=== PATIENT | male | born 1990 | race African-American/Black ===

== ENCOUNTER 2018-08-11 12:51 | Emergency (ER) | payer OTHER ==
[~2018-08-11] VITALS: Ht 177.8 cm; Wt 65.8 kg
--- NOTE | 2018-08-11 13:01 | NUR ---
Dr Connolly at the bedside for MSE.
[2018-08-11] MEDS ORDERED: KETOROLAC TROMETHAMINE 15 MG INJ ONE (13:13)
[2018-08-11] MEDS ORDERED: LIDOCAINE VISCUS 2% 15 ML UDC ONE (13:13)
[2018-08-11] MEDS ORDERED: MAG HYDROX/AL HYDROX/SIMETH 30 ML LIQUID UDC ONE (13:13)
[2018-08-11] MEDS ORDERED: FAMOTIDINE. 20 MG/2 ML VIAL IV ONE ×2 (13:14→13:15)
[2018-08-11] MEDS ORDERED: KETOROLAC TROMETHAMINE 15 MG INJ IV ONE (13:15)
[2018-08-11] MEDS ORDERED: LIDOCAINE VISCUS 2% 15 ML UDC MM ONE (13:15)
[2018-08-11] MEDS ORDERED: MAG HYDROX/AL HYDROX/SIMETH 30 ML LIQUID UDC PO ONE (13:15)
[2018-08-11 13:26] LABS: BASOPHILS % (AUTO) 0.4 % (0.0-2.0); EOSINOPHILS # (AUTO) 0.1 K/uL (0.0-0.7); EOSINOPHILS % (AUTO) 1.6 % (0.0-7.0); HEMOGLOBIN 14.4 g/dL (12.5-16.3); LYMPHOCYTES % (AUTO) 29.3 % (20.5-51.5); MEAN CORPUSCULAR HEMOGLOBIN 29.6 uug (23.8-33.4); MEAN CORPUSCULAR HGB CONC 34 g/dL (32.5-36.3); MEAN CORPUSCULAR VOLUME 88.2 fL (73.0-96.2); MONOCYTES # (AUTO) 0.5 K/uL (2.0-10.0); MONOCYTES % (AUTO) 7.5 % (0.0-11.0); NEUTROPHILS # (AUTO) 4.2 K/uL (1.8-8.9); NEUTROPHILS % (AUTO) 61.2 % (38.5-71.5); PLATELET COUNT (AUTO) 151 K/uL (152-348); RED BLOOD CELL COUNT(AUTO) 4.88 MIL/uL (4.06-5.63); WHITE BLOOD COUNT (AUTO) 6.9 K/uL (3.6-10.2)
[2018-08-11 13:32] LABS: CREATININE 1.1 mg/dL (0.6-1.3); POTASSIUM 3.2 mmol/L (3.5-5.1)
[2018-08-11 13:38] LABS: BILIRUBIN,DIRECT 0.1 mg/dL (0.0-0.2); BILIRUBIN,TOTAL 0.3 mg/dL (0.2-1.0); TOTAL PROTEIN, SERUM 8.4 g/dL (6.4-8.2)
--- NOTE | 2018-08-11 13:39 | NUR ---
Pt states feeling better.
[2018-08-11 13:51] VITALS: BP 112/63
--- NOTE | 2018-08-11 13:52 | NUR ---
IV removed. Catheter intact and site benign. Pressure and 4x4 gauze applied to site. No bleeding noted.
--- NOTE | 2018-08-11 13:54 | NUR ---
Patient discharged to home in stable conditon. Written and verbal after care instructions given. Patient verbalizes understanding of instructions.
== END 2018-08-11 13:54 | disposition home or self-care (01) ==
LOC: ER 12:51
DX: R10.13 Epigastric pain (principal); R10.10 Upper abdominal pain, unspecified
CPT/HCPCS: 36415; 80048; 80076; 83690; 85025; 96374; 96375; 99283; J1885; J3490; A4663

== ENCOUNTER 2019-05-19 10:45 | Emergency (ER) | payer OTHER ==
[~2019-05-19] VITALS: Ht 188 cm; Wt 75.3 kg
--- NOTE | 2019-05-19 11:29 | NUR ---
Patient discharged to home in stable conditon. Written and verbal after care instructions given. Patient verbalizes understanding of instructions.
== END 2019-05-19 11:31 | disposition home or self-care (01) ==
LOC: ER 10:45
DX: S93.402A Sprain of unspecified ligament of left ankle, initial encounter (principal); K21.9 Gastro-esophageal reflux disease without esophagitis; X50.1XXA Overexertion from prolonged static or awkward postures, initial encounter; Y93.41 Activity, dancing; Y92.89 Other specified places as the place of occurrence of the external cause; Y99.8 Other external cause status
CPT/HCPCS: A4663

== ENCOUNTER 2021-02-02 15:35 | Emergency (ER) | payer OTHER ==
[~2021-02-02] VITALS: Ht 177.8 cm; Wt 68.0 kg
--- NOTE | 2021-02-02 15:50 | NUR ---
Pt was seen by and given verbal ACI but walked out of ER before written ACI could be given.
== END 2021-02-02 15:52 | disposition home or self-care (01) ==
LOC: ER 15:35
DX: Z76.89 Persons encountering health services in other specified circumstances (principal); K21.9 Gastro-esophageal reflux disease without esophagitis
CPT/HCPCS: A4663

== ENCOUNTER 2021-06-30 12:40 | Emergency (ER) | payer OTHER ==
[~2021-06-30] VITALS: Ht 177.8 cm; Wt 68.0 kg
--- NOTE | 2021-06-30 13:04 | NUR ---
Eye exam setup for provider. Provider at bedside.
[2021-06-30] MEDS ORDERED: TETRACAINE HCL 0.5% OPHT DROP 2 ML BOTTLE ONE (13:11)
[2021-06-30] MEDS ORDERED: SULF15DR6 LEFTEYE (13:11)
[2021-06-30] MEDS ORDERED: FLUORESCEIN SODIUM 1 MG STRIP ONE (13:11)
[2021-06-30] MEDS ORDERED: FLUORESCEIN SODIUM 1 MG STRIP OP ONE (13:15)
[2021-06-30] MEDS ORDERED: TETRACAINE HCL 0.5% OPHT DROP 2 ML BOTTLE OP ONE (13:15)
[2021-06-30 13:16] VITALS: BP 117/87
--- NOTE | 2021-06-30 13:16 | NUR ---
Patient discharged to home in stable condition. Written and verbal after care instructions given. Patient verbalizes understanding of instructions. Stressed follow up or return to ER for worsening s/s.
== END 2021-06-30 13:17 | disposition home or self-care (01) ==
LOC: ER 12:43
DX: S05.02XA Injury of conjunctiva and corneal abrasion without foreign body, left eye, initial encounter (principal); X58.XXXA Exposure to other specified factors, initial encounter; Y92.89 Other specified places as the place of occurrence of the external cause
CPT/HCPCS: A4663

== ENCOUNTER 2021-11-14 12:44 | Emergency (ER) | payer MEDICAID, OTHER ==
[~2021-11-14] VITALS: Ht 177.8 cm; Wt 68.0 kg
[~2021-11-14 12:44] MED LIST: SULF15DR6 LEFTEYE
[2021-11-14] MEDS ORDERED: HYDR28.316 TP ×2 (13:03→14:56)
== END 2021-11-14 13:11 | disposition home or self-care (01) ==
LOC: ER 12:44
DX: K64.4 Residual hemorrhoidal skin tags (principal)
CPT/HCPCS: A4663

== ENCOUNTER 2022-02-06 11:04 | Emergency (ER) | payer MEDICAID ==
[~2022-02-06] VITALS: Ht 177.8 cm; Wt 68.0 kg
[~2022-02-06 11:04] MED LIST changes: +HYDR28.316 TP
--- NOTE | 2022-02-06 11:15 | NUR ---
MSE in progress.
[2022-02-06] MEDS ORDERED: FLUORESCEIN SODIUM 1 MG STRIP ONE (11:20)
[2022-02-06] MEDS ORDERED: POLY10DR6 EACHEYE (11:25)
[2022-02-06] MEDS ORDERED: FLUORESCEIN SODIUM 1 MG STRIP OP ONE (11:30)
[2022-02-06 11:40] VITALS: BP 124/83
== END 2022-02-06 11:40 | disposition home or self-care (01) ==
LOC: ER 11:04
DX: S05.02XA Injury of conjunctiva and corneal abrasion without foreign body, left eye, initial encounter (principal); X58.XXXA Exposure to other specified factors, initial encounter; Y92.89 Other specified places as the place of occurrence of the external cause; H57.12 Ocular pain, left eye
CPT/HCPCS: A4663

== ENCOUNTER 2022-03-04 13:11 | Emergency (ER) | payer MEDICAID ==
[~2022-03-04] VITALS: Ht 177.8 cm; Wt 68.0 kg
[~2022-03-04 13:11] MED LIST changes: +POLY10DR6 EACHEYE
== END 2022-03-04 14:30 | disposition left against medical advice (07) ==
LOC: ER 13:11
DX: Z53.21 Procedure and treatment not carried out due to patient leaving prior to being seen by health care provider (principal)

== ENCOUNTER 2023-04-13 17:38 | Emergency (ER) | payer MEDICAID ==
[~2023-04-13] VITALS: Ht 177.8 cm; Wt 68.0 kg
[2023-04-13 19:35] VITALS: BP 112/79; TEMP 98.9; O2SAT 100
== END 2023-04-13 19:35 | disposition home or self-care (01) ==
LOC: ER 17:45
DX: S06.0X0A Concussion without loss of consciousness, initial encounter (principal); K21.9 Gastro-esophageal reflux disease without esophagitis; Z79.899 Other long term (current) drug therapy; W18.39XA Other fall on same level, initial encounter; Y93.89 Activity, other specified; Y92.89 Other specified places as the place of occurrence of the external cause; Y99.8 Other external cause status
CPT/HCPCS: A4663

== ENCOUNTER 2023-06-18 09:45 | Emergency (ER) | payer MEDICAID ==
[~2023-06-18] VITALS: Ht 177.8 cm; Wt 68.0 kg
[2023-06-18] MEDS ORDERED: DOXY100C5 PO (10:02)
[2023-06-18] MEDS ORDERED: DOXY100T2 PO (10:07)
[2023-06-18 11:25] VITALS: BP 113/67; O2SAT 96
== END 2023-06-18 11:25 | disposition home or self-care (01) ==
LOC: ER 09:45
DX: J02.9 Acute pharyngitis, unspecified (principal); K21.9 Gastro-esophageal reflux disease without esophagitis; Z79.899 Other long term (current) drug therapy
CPT/HCPCS: A4606; A4663

== ENCOUNTER 2023-07-11 09:57 | Emergency (ER) | payer MEDICAID ==
[~2023-07-11] VITALS: Ht 177.8 cm; Wt 68.0 kg
[~2023-07-11 09:57] MED LIST changes: +DOXY100T2 PO
[2023-07-11 10:14] VITALS: O2SAT 97
[2023-07-11] MEDS ORDERED: METOCLOPRAMIDE HCL 10 MG/2 ML VIAL IV ONE (11:15)
[2023-07-11] MEDS ORDERED: KETOROLAC TROMETHAMINE 15 MG INJ IVP ONE (11:15)
[2023-07-11] MEDS ORDERED: IV NORMAL SALINE 1000 ML BAG IV ONE (11:15)
[2023-07-11 11:44] LABS: BASOPHILS # (AUTO) 0.1 K/UL (0.0-0.2); BASOPHILS % (AUTO) 1.8 % (0.0-2.0); EOSINOPHILS # (AUTO) 0.1 K/uL (0.0-0.7); EOSINOPHILS % (AUTO) 2.8 % (0.0-7.0); HEMATOCRIT 44.8 % (36.7-47.1); HEMOGLOBIN 14.8 g/dL (12.5-16.3); LYMPHOCYTES # (AUTO) 1.3 K/uL (0.8-4.8); LYMPHOCYTES % (AUTO) 40.8 % (20.5-51.5); MEAN CORPUSCULAR HEMOGLOBIN 29.6 uug (23.8-33.4); MEAN CORPUSCULAR HGB CONC 33 g/dL (32.5-36.3); MEAN CORPUSCULAR VOLUME 89.4 fL (73.0-96.2); MONOCYTES # (AUTO) 0.4 K/uL (0.1-1.30); MONOCYTES % (AUTO) 11.9 % (0.0-11.0); NEUTROPHILS # (AUTO) 1.3 K/uL (1.8-8.9); NEUTROPHILS % (AUTO) 42.7 % (38.5-71.5); PLATELET COUNT (AUTO) 153 K/uL (152-348); RED BLOOD CELL COUNT(AUTO) 5.01 MIL/uL (4.06-5.63); RED CELL DISTRIBUTION WIDTH 13.8 % (12.1-16.2); WHITE BLOOD COUNT (AUTO) 3.1 K/uL (3.6-10.2)
[2023-07-11 12:06] LABS: ALBUMIN 4.1 g/dL (3.4-5.0); BILIRUBIN,DIRECT 0.2 mg/dL (0.0-0.2); BILIRUBIN,TOTAL 0.5 mg/dL (0.2-1.0); CALCIUM 9.5 mg/dL (8.5-10.1); POTASSIUM 4.1 mmol/L (3.5-5.1); TOTAL PROTEIN, SERUM 7.9 g/dL (6.4-8.2)
[2023-07-11] MEDS ORDERED: DICY10CA13 PO (12:28)
[2023-07-11] MEDS ORDERED: IBUP-1957 PO (12:28)
[2023-07-11 12:53] LABS: DIFFERENTIAL COMMENT 1
== END 2023-07-11 12:39 | disposition home or self-care (01) ==
LOC: ER 09:57
DX: R10.32 Left lower quadrant pain (principal); R19.7 Diarrhea, unspecified; K21.9 Gastro-esophageal reflux disease without esophagitis; Z79.1 Long term (current) use of non-steroidal anti-inflammatories (NSAID); Z79.2 Long term (current) use of antibiotics; Z79.899 Other long term (current) drug therapy
CPT/HCPCS: 36415; 83690; 85025; A4606; A4663

== ENCOUNTER 2023-09-03 18:29 | Emergency (ER) | payer MEDICAID, OTHER ==
[~2023-09-03] VITALS: Ht 177.8 cm; Wt 68.0 kg
[~2023-09-03 18:29] MED LIST changes: +DICY10CA13 PO; +IBUP-1957 PO
[2023-09-03] MEDS ORDERED: ONDANSETRON ODT 4 MG TAB.RAPDIS SL ONE (19:30)
[2023-09-03] MEDS ORDERED: DICYCLOMINE HCL LIQ 10 MG/5 ML UDC PO ONE (19:30)
[2023-09-03] MEDS ORDERED: DICYCLOMINE HCL LIQ 10 MG/5 ML UDC ONE (19:39)
[2023-09-03] MEDS ORDERED: ONDANSETRON ODT 4 MG TAB.RAPDIS ONE (19:39)
[2023-09-03] MEDS ORDERED: DICY20TA11 PO (20:09)
[2023-09-03] MEDS ORDERED: ONDA4TAB11 PO (20:09)
[2023-09-03 20:22] VITALS: BP 130/69; TEMP 98.6; O2SAT 100
== END 2023-09-03 20:22 | disposition home or self-care (01) ==
LOC: ER 18:30
DX: R19.7 Diarrhea, unspecified (principal); R10.31 Right lower quadrant pain; R11.2 Nausea with vomiting, unspecified; K21.9 Gastro-esophageal reflux disease without esophagitis; Z79.899 Other long term (current) drug therapy
CPT/HCPCS: A4606; A4663; Q0162

== ENCOUNTER 2023-12-29 17:14 | Emergency (ER) | payer MEDICAID, OTHER ==
[~2023-12-29] VITALS: Ht 177.8 cm; Wt 71.7 kg
[~2023-12-29 17:14] MED LIST changes: -DICY10CA13 PO; +DICY20TA11 PO; -DOXY100T2 PO; -HYDR28.316 TP; -IBUP-1957 PO; +ONDA4TAB11 PO; -POLY10DR6 EACHEYE; -SULF15DR6 LEFTEYE
[2023-12-29 17:55] VITALS: BP 130/74; TEMP 98.3; O2SAT 98
== END 2023-12-29 18:47 | disposition home or self-care (01) ==
LOC: ER 17:15
DX: I10 Essential (primary) hypertension (principal); K21.9 Gastro-esophageal reflux disease without esophagitis; Z79.899 Other long term (current) drug therapy
CPT/HCPCS: A4606; A4663

== ENCOUNTER 2024-06-25 11:32 | Emergency (ER) | payer MEDICAID, OTHER ==
[~2024-06-25] VITALS: Ht 175.3 cm; Wt 68.0 kg
[2024-06-25] MEDS ORDERED: IBUP-1955 PO (12:03)
[2024-06-25 12:15] VITALS: BP 120/65; O2SAT 98
== END 2024-06-25 12:22 | disposition home or self-care (01) ==
LOC: ER 11:32
DX: M25.561 Pain in right knee (principal); K21.9 Gastro-esophageal reflux disease without esophagitis; Z79.899 Other long term (current) drug therapy
CPT/HCPCS: A4606; A4663

== ENCOUNTER 2025-02-13 10:45 | Emergency (ER) | payer MEDICAID, OTHER ==
[~2025-02-13] VITALS: Ht 177.8 cm; Wt 68.0 kg
[~2025-02-13 10:45] MED LIST changes: +IBUP-1955 PO
[2025-02-13 11:56] VITALS: BP 111/80; O2SAT 97
== END 2025-02-13 11:56 | disposition home or self-care (01) ==
LOC: ER 10:45
DX: M25.562 Pain in left knee (principal); R22.42 Localized swelling, mass and lump, left lower limb; K21.9 Gastro-esophageal reflux disease without esophagitis; Z86.69 Personal history of other diseases of the nervous system and sense organs; Z87.19 Personal history of other diseases of the digestive system
CPT/HCPCS: 73560; A4606; A4663

== ENCOUNTER 2025-05-17 20:08 | Emergency (ER) | payer MEDICAID ==
[~2025-05-17] VITALS: Ht 175.3 cm; Wt 68.0 kg
[2025-05-17 20:10] VITALS: BP 138/79
[2025-05-17] MEDS ORDERED: AZIT250T PO (22:06)
[2025-05-17] MEDS ORDERED: BENZ-13 PO (22:07)
[2025-05-17 22:37] VITALS: BP 134/66; TEMP 98; O2SAT 97
== END 2025-05-17 22:23 | disposition home or self-care (01) ==
LOC: ER 20:08
DX: J02.9 Acute pharyngitis, unspecified (principal); Z20.822 Contact with and (suspected) exposure to COVID-19
CPT/HCPCS: 86403; 87070; A4606; A4663

== ENCOUNTER 2025-07-05 17:10 | Emergency (ER) | payer MEDICAID ==
[~2025-07-05] VITALS: Ht 175.3 cm; Wt 68.0 kg
[~2025-07-05 17:10] MED LIST changes: +AZIT250T PO; +BENZ-13 PO; -DICY20TA11 PO; +DICY20TA13 PO; -IBUP-1955 PO; +IBUP-2760 PO; +ONDA-243 PO; -ONDA4TAB11 PO
[2025-07-05] MEDS ORDERED: ESCI10TA PO (17:18)
[2025-07-05] MEDS ORDERED: ONDANSETRON 4 MG/2 ML VIAL ONE (17:31)
[2025-07-05] MEDS ORDERED: MAG HYDROX/AL HYDROX/SIMETH 30 ML LIQUID UDC ONE (17:31)
[2025-07-05] MEDS ORDERED: LIDOCAINE VISCUS 2% 15 ML UDC ONE (17:33)
[2025-07-05] MEDS ORDERED: FAMOTIDINE. 20 MG/2 ML VIAL IV ONE (17:34)
[2025-07-05 17:35] VITALS: BP 135/82
[2025-07-05] MEDS: FAMOTIDINE. 20 MG/2 ML VIAL IV ONE (17:36)
[2025-07-05] MEDS: ONDANSETRON 4 MG/2 ML VIAL IV ONE (17:37)
[2025-07-05] MEDS: MAG HYDROX/AL HYDROX/SIMETH 30 ML LIQUID UDC PO ONE (17:37)
[2025-07-05] MEDS: LIDOCAINE VISCUS 2% 15 ML UDC MM ONE (17:37)
[2025-07-05] MEDS: IV NORMAL SALINE 1000 ML BAG IV ONE (17:38)
[2025-07-05] MEDS: DICYCLOMINE HCL 10 MG CAPSULE PO STA (17:47)
[2025-07-05 17:51] LABS: PLATELET COUNT (AUTO) 172 K/uL (152-348); RED BLOOD CELL COUNT(AUTO) 4.99 MIL/uL (4.06-5.63); RED CELL DISTRIBUTION WIDTH 13.7 % (12.1-16.2); WHITE BLOOD COUNT (AUTO) 6.5 K/uL (3.6-10.2)
[2025-07-05] MEDS ORDERED: ONDA4TAB5 PO (17:54)
[2025-07-05] MEDS ORDERED: FAMO-132 PO (17:54)
[2025-07-05] MEDS ORDERED: DICY-17 PO (17:54)
[2025-07-05 17:58] LABS: CREATININE 1.2 mg/dL (0.6-1.3); SODIUM SERUM 144.0 mmol/L (136-145); UREA NITROGEN, BLOOD 20.0 mg/dL (7-18)
[2025-07-05 18:03] LABS: ASPARTATE AMINOTRANSFERASE 17.0 U/L (15-37); TOTAL PROTEIN, SERUM 7.9 g/dL (6.4-8.2)
[2025-07-05 18:40] VITALS: BP 118/80; TEMP 97.5; O2SAT 98
== END 2025-07-05 18:43 | disposition home or self-care (01) ==
LOC: ER 17:15
DX: R10.13 Epigastric pain (principal); R11.0 Nausea; Z79.899 Other long term (current) drug therapy; Z87.19 Personal history of other diseases of the digestive system
CPT/HCPCS: 99284; 96374; 96361; 96375; 80076; 80048; 83690; 85025; 36415; J1308; J2405; J7040; A4606; A4663